=== PATIENT | female | born 1975 | race Caucasian/White ===

== ENCOUNTER → 2017-10-05 07:00 | Outpatient (CLI) | payer OTHER, SELFPAY ==
--- NOTE | 2017-10-05 07:04 | HPBI_ITS ---
MAMMOGRAPHY - BILATERAL SCREENING REASON FOR EXAM: Female, 42 years old. Routine annual screening examination. PERTINENT HISTORY: Grandmother with breast cancer. TECHNIQUE: Digital bilateral breast jerzy (3D mammographic acquisition) in the CC and MLO projections. 2-D mediolateral oblique (MLO) and craniocaudad (CC) views of both breasts were obtained. CAD: Full Field Digital Mammography with Computer Added Detection was performed. COMPARISON: Comparison is made with prior study dated March 12, 2016. FINDINGS: Breast Composition: The breasts are heterogeneously dense, which may obscure small masses. There are no dominant masses or suspicious calcifications. There is a 4 mm well-defined nodule in the upper lateral portion of the left breast. This most likely represents a small cyst or small lymph node. Correlation with ultrasound is recommended. No other significant abnormalities are identified. There has been no significant change since the prior study. HPBI/SCREENING MAMM (CAD), BILAT IMPRESSION: 4 mm well-defined nodule in the upper lateral portion of the left breast as described. Correlation with ultrasound is recommended. ASSESSMENT CATEGORY: BIRADS Category 0: Incomplete. Need additional imaging evaluation. A letter regarding these results will be sent to the patient by the facility within 30 days. Approximately 10% of breast cancers are not detected by mammography. A normal mammogram should not delay biopsy of a clinically suspicious abnormality. [id number] Electronically Signed: Rafael Warner MD at 9:04 EDT Tel [phone], Service support ,
== END ==
PROVIDERS: Visit Provider Obstetrics & Gynecology
DX: Z12.31 Encounter for screening mammogram for malignant neoplasm of breast (principal)
CPT/HCPCS: 77063; 77067

== ENCOUNTER → 2017-10-06 10:23 | Outpatient (CLI) | payer OTHER, SELFPAY ==
--- NOTE | 2017-10-06 10:25 | US_ITS ---
STUDY: ULTRASOUND BREAST - LEFT REASON FOR EXAM: Female, 42 years old. Abnormal screening mammogram. TECHNIQUE: Axial and longitudinal images of the LEFT breast were performed with a high resolution ultrasound transducer. COMPARISON: Comparison is made with prior mammogram dated October 05, 2017. FINDINGS: LEFT Breast: There is a 5 mm x 6 mm x 5 mm cyst at the 1:00 position approximately 3 cm from nipple. There is a 7 mm x 7 mm x 6 mm cyst at the 2:00 position breast at 4 cm from nipple. There is also evidence of a 6 mm x 4 mm x 3 mm lymph node at the 1:00 position breast at 5 sinus on US/Breast Limited Unilateral IMPRESSION: 2 small cysts and one benign-appearing lymph node are seen in the upper outer quadrant of the left breast. Routine mammographic follow-up is recommended. ASSESSMENT CATEGORY: BIRADS Category 2: Benign. A letter regarding these results will be sent to the patient by the facility within 30 days. Electronically Signed: Rafael Warner MD at 12:44 EDT Tel [phone], Service support ,
== END ==
PROVIDERS: Family Provider Family Medicine; PCP Family Medicine; Visit Provider Obstetrics & Gynecology
DX: N63.21 Unspecified lump in the left breast, upper outer quadrant (principal)
CPT/HCPCS: 76642

== ENCOUNTER → 2019-08-23 09:12 | Outpatient (CLI) | payer OTHER, SELFPAY | PROVIDERS: PCP Family Medicine; Referring Provider Obstetrics & Gynecology; Visit Provider Obstetrics & Gynecology | DX: L91.8 Other hypertrophic disorders of the skin (principal) ==

== ENCOUNTER → 2019-08-23 18:06 | Outpatient (CLI) | payer OTHER, SELFPAY ==
--- NOTE | 2019-08-23 | SKTAG_PTH ---
PATIENT: ASHOK MCALLISTER LOC: [facility] U#:[id number] AGE/SX: 50/F ROOM: RE08/23/[address]: Dr. Leonel Smith MD : 1975 BED: DIS: SPEC #: [id number] RECD: 08/23/19 18:05 STATUS: ROSE MARY DARLENE #: [id number] TRICIA: 08/23/19 00:[address]: Leonel Smith DEPT: SURGICAL PATHOLOGY RECD BY: Freddie Danielson ENTERED: 08/24/19 08:09 SP TYPE: SKIN TAG RONAL DR: Dr. 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 SJ:krish 08/25/19 MICROSCOPIC DESCRIPTION Slides are reviewed. GROSS DESCRIPTION Received in fixative is one container labeled with the patient's name and designated skin tag. The specimen consists of a polypoid piece of herndon-white skin measuring 1.5 x 1 x 0.3 cm. The specimen is inked, bisected and submitted entirely in one cassette. / SJ:rg 08/24/19 TC:5 CPT: 54065
[2019-08-28 21:03] LABS: HPV Reflexed? NOT INDICATED
== END ==
PROVIDERS: PCP Family Medicine; Referring Provider Obstetrics & Gynecology; Visit Provider Obstetrics & Gynecology
DX: Z12.4 Encounter for screening for malignant neoplasm of cervix (principal)
CPT/HCPCS: 88175; 88304; G0145

== ENCOUNTER → 2019-09-01 15:46 | Outpatient (CLI) | payer OTHER, SELFPAY ==
--- NOTE | 2019-09-01 15:49 | BI_ITS ---
MAMMOGRAPHY - BILATERAL SCREENING 3-D TOMOSYNTHESIS REASON FOR EXAM: Female, 44 years old. Routine screening PERTINENT HISTORY: Grandmother with breast cancer.. TECHNIQUE: 2-D mammograms and 3-D Tomosynthesis of the breast (s) were performed. CAD was performed. COMPARISON: 10/05/2017 FINDINGS: The breast composition is heterogeneously dense that can obscure small breast masses. Scattered benign calcifications are seen. No dense spiculated masses or suspicious microcalcifications are identified. No architectural distortion is identified. There is no skin thickening or retraction. Stable 4 mm nodule in the upper outer quadrant of the left breast. There has been no significant change since the prior study. BI/SCREEN MAMM (CAD) W/JOSE ARMANDO BILAT IMPRESSION: No mammographic signs of malignancy. Routine yearly mammograms recommended. ASSESSMENT CATEGORY: BIRADS Category 2: Benign. A letter regarding these results will be sent to the patient by the facility within 30 days. FOLLOW UP RECOMMENDATION: Yearly follow up mammogram recommended. (A) Approximately 10% of breast cancers are not detected by mammography. A normal mammogram should not delay biopsy of a clinically suspicious abnormality. Electronically Signed: Flip Bearden MD at 9:34 EST , Service support ,
== END ==
PROVIDERS: PCP Family Medicine; Referring Provider Obstetrics & Gynecology; Visit Provider Obstetrics & Gynecology
DX: Z12.31 Encounter for screening mammogram for malignant neoplasm of breast (principal)
CPT/HCPCS: 77063; 77067

== ENCOUNTER → 2019-09-14 09:44 | Outpatient (CLI) | payer OTHER, SELFPAY ==
[2019-09-14 13:04] LABS: Vitamin D,25 Hydroxy 18.8 ng/mL (29.95-100.01)
[2019-09-14 13:10] LABS: Anion Gap 6 (5-15); BUN 13 mg/dL (7-18); BUN/Creat Ratio 16.8 RATIO (10-20); Calcium,Total 8.7 mg/dL (8.5-10.1); Chloride 106 mmol/L (98-107); Cholesterol 163 mg/dL (200); Creatinine, Serum 0.77 mg/dL (0.55-1.02); EST Glomerular Filtration Rate 86 mL/min (>60); Est Glom Filt Rate - Afr Amer 104 mL/min (>60); Glucose 87 mg/dL (74-106); High Density Lipoprotein 64 mg/dL; Potassium 4.3 mmol/L (3.5-5.1); Sodium Level 139 mmol/L (136-145); Triglycerides 117 mg/dL; Very Low Density Lipoprotein 23 mg/dL (5-40)
== END ==
PROVIDERS: PCP Family Medicine; Referring Provider Family Medicine; Visit Provider Family Medicine
DX: Z00.00 Encounter for general adult medical examination without abnormal findings (principal)
CPT/HCPCS: 36415; 80048; 80061; 82306

== ENCOUNTER → 2021-03-07 07:56 | Outpatient (CLI) | payer OTHER, SELFPAY ==
--- NOTE | 2021-03-07 08:16 | BI_ITS ---
MAMMOGRAPHY - BILATERAL SCREENING REASON FOR EXAM: Female, 46 years old. Routine annual screening examination. PERTINENT HISTORY: Grandmother with breast cancer. TECHNIQUE: Digital bilateral breast jose armando (3D mammographic acquisition) in the CC and MLO projections. 2-D mediolateral oblique (MLO) and craniocaudad (CC) views of both breasts were obtained. CAD: Full Field Digital Mammography with Computer Added Detection was performed. COMPARISON: Comparison is made with prior examination dated 09/01/2019 and 10/05/2017. FINDINGS: Breast Composition: The breasts are heterogeneously dense, which may obscure small masses. I suspect a 1.2 cm x 0.8 cm well-defined nodule in the upper lateral aspect of the left breast. Correlation with ultrasound is recommended. Stable benign-appearing bilateral axillary lymph nodes. No other significant abnormalities are identified. BI/SCRN MAMM (CAD)W/JOSE ARMANDO BILAT IMPRESSION: Findings suggestive of a 1.2 cm x 0.8 cm well-defined nodule in the upper lateral aspect of the left breast. Correlation with ultrasound is recommended. ASSESSMENT CATEGORY: BIRADS Category 0: Incomplete. Need additional imaging evaluation. A letter regarding these results will be sent to the patient by the facility within 30 days. Approximately 10% of breast cancers are not detected by mammography. A normal mammogram should not delay biopsy of a clinically suspicious abnormality. [id number] Electronically Signed: Rafael Warner MD at 9:16 EDT , Service support ,
== END ==
PROVIDERS: PCP Family Medicine; Referring Provider Obstetrics & Gynecology; Visit Provider Obstetrics & Gynecology
DX: Z12.31 Encounter for screening mammogram for malignant neoplasm of breast (principal); Z80.3 Family history of malignant neoplasm of breast
CPT/HCPCS: 77063; 77067

== ENCOUNTER → 2021-03-12 10:54 | Outpatient (CLI) | payer OTHER, SELFPAY ==
--- NOTE | 2021-03-12 11:00 | US_ITS ---
STUDY: ULTRASOUND BREAST - LEFT REASON FOR EXAM: Female, 46 years old. Abnormal screening mammogram. TECHNIQUE: Axial and longitudinal images of the LEFT breast were performed with a high resolution ultrasound transducer. # OF IMAGES: 10 COMPARISON: Comparison is made with prior mammogram dated 03/07/2021. Prior sonogram of the left breast dated 10/06/2017. FINDINGS: LEFT Breast: The mammographic abnormality corresponds to a 1.2 cm x 1.4 cm x 0.8 cm cyst at the 1 o''clock position of the breast at 3 cm from nipple. US/Breast Limited Unilateral IMPRESSION: The mammographic abnormality corresponds to 1.2 cm x 1.4 cm x 0.8 cm cyst at the 1 o''clock position of the breast at 3 cm from the nipple. ASSESSMENT CATEGORY: BIRADS Category 2: Benign. A letter regarding these results will be sent to the patient by the facility within 30 days. Electronically Signed: Rafael Warner MD at 12:38 EDT , Service support ,
== END ==
PROVIDERS: PCP Family Medicine; Referring Provider Obstetrics & Gynecology; Visit Provider Obstetrics & Gynecology
DX: R92.8 Other abnormal and inconclusive findings on diagnostic imaging of breast (principal)
CPT/HCPCS: 76642

== ENCOUNTER → 2021-03-27 09:18 | Outpatient (CLI) | payer OTHER, SELFPAY ==
[2021-03-27 10:30] LABS: Anion Gap 6 (5-15); BUN 9 mg/dL (7-18); BUN/Creat Ratio 12.9 RATIO (10-20); Calcium,Total 8.4 mg/dL (8.5-10.1); Chloride 108 mmol/L (98-107); Cholesterol 153 mg/dL (200); EST Glomerular Filtration Rate 96 mL/min (>60); Est Glom Filt Rate - Afr Amer 116 mL/min (>60); Glucose 105 mg/dL (74-106); High Density Lipoprotein 61 mg/dL; Sodium Level 140 mmol/L (136-145); Thyroid Stim Hormone (TSH) 0.99 uIU/mL (0.358-3.74); Triglycerides 76 mg/dL; Very Low Density Lipoprotein 15 mg/dL (5-40)
[2021-03-27 10:55] LABS: Vitamin D,25 Hydroxy 33.5 ng/mL
== END ==
PROVIDERS: PCP Family Medicine; Referring Provider Family Medicine; Visit Provider Family Medicine
DX: Z00.00 Encounter for general adult medical examination without abnormal findings (principal); F32.9 Major depressive disorder, single episode, unspecified
CPT/HCPCS: 36415; 80048; 80061; 82306; 84443

== ENCOUNTER → 2022-10-07 | Outpatient (CLI) | payer OTHER, SELFPAY ==
[2022-10-15 12:50] LABS: HPV APTIMA, High Risk Negative (Negative)
== END | disposition home or self-care (01) ==
LOC: LABSPEC 12:49
PROVIDERS: PCP Family Medicine; Visit Provider Obstetrics & Gynecology
DX: Z01.419 Encounter for gynecological examination (general) (routine) without abnormal findings (principal)
CPT/HCPCS: 87624; 88175; G0145

== ENCOUNTER → 2022-10-12 | Outpatient (CLI) | payer OTHER, SELFPAY ==
--- NOTE | 2022-10-12 12:41 | BI_ITS ---
MAMMOGRAPHY - BILATERAL SCREENING REASON FOR EXAM: Female, 47 years old. Routine annual screening examination. PERTINENT HISTORY: Grandmother with breast cancer. TECHNIQUE: Digital bilateral breast jose armando (3D mammographic acquisition) in the CC and MLO projections. 2-D mediolateral oblique (MLO) and craniocaudad (CC) views of both breasts were obtained. CAD: Full Field Digital Mammography with Computer Added Detection was performed. COMPARISON: Comparison is made with prior study dated March 07, 2021 and September 01, 2019. FINDINGS: Breast Composition: The breasts are heterogeneously dense, which may obscure small masses. There are no dominant masses or suspicious calcifications. Stable 1.2 cm well-defined nodule in the upper lateral aspect of the left breast. Prior ultrasound demonstrated this to be a small cyst. Stable benign-appearing bilateral axillary lymph nodes. No other significant abnormalities are identified. There has been no significant change since the prior study. BI/SCRN MAMM (CAD)W/JOSE ARMANDO BILAT IMPRESSION: Stable bilateral screening mammogram. Yearly follow-up mammogram recommended. (A) ASSESSMENT CATEGORY: BIRADS Category 2: Benign. A letter regarding these results will be sent to the patient by the facility within 30 days. Approximately 10% of breast cancers are not detected by mammography. A normal mammogram should not delay biopsy of a clinically suspicious abnormality. [id number] Electronically Signed: Rafael Warner MD at 14:33 EDT ,
== END | disposition home or self-care (01) ==
LOC: OPBI 12:39
PROVIDERS: PCP Family Medicine; Referring Provider Obstetrics & Gynecology; Visit Provider Obstetrics & Gynecology
DX: Z12.31 Encounter for screening mammogram for malignant neoplasm of breast (principal); Z80.3 Family history of malignant neoplasm of breast
CPT/HCPCS: 77063; 77067

== ENCOUNTER → 2023-11-16 | Outpatient (CLI) | payer OTHER, SELFPAY ==
[2023-11-16 16:18] LABS: Absolute Lymphocyte Count 2.24 X10^3/uL (0.83-4.51); Absolute Neutrophil Count 6.6 X10^3/uL (2.0-7.7); Basophil# 0.09 X10^3/uL; Basophil% 0.9 % (0-1); Eosinophil# 0.16 X10^3/uL; Eosinophils% 1.7 % (0-5); Hemoglobin 13.3 g/dL (12.0-15.0); Lymphocyte # 2.24 X10^3/ul (0.83-4.51); Lymphocyte % 23.4 % (19-41); Mean Corp Hgb Conc 32.4 g/dL (32-36); Mean Corpuscular Hgb 34.3 pg (27.0-32.0); Mean Corpuscular Volume 105.7 fL (81-99); Mean Platelet Vol. 10.7 fl (6.2-12.0); Monocyte# 0.48 X10^3/uL; NRBC Flagged by Analyzer 0 % (0-5); Neutrophil # 6.57 X10^3/uL (2.7-7.7); Neutrophil % 68.6 % (47-70); Platelet Count 272 K/mm3 (150-450); RBC Distribution Width CV 11.8 % (11.6-14.6); RBC Distribution Width SD 46.4 fl (35.1-43.9); Red Blood Count 3.88 M/mm3 (4.2-5.4); White Blood Count 9.6 K/mm3 (4.4-11.0)
[2023-11-16 16:34] LABS: ALB/GLOB Ratio 1.1 RATIO (0.9-2.4); AST(SGOT) 15 U/L (15-37); Alanine Aminotransfer ALT/SGPT 33 U/L (13-56); Albumin, Serum 3.9 g/dL (3.2-5.0); Alkaline Phosphatase 110 U/L (45-117); Anion Gap 4 (5-15); BUN 13 mg/dL (7-18); BUN/Creat Ratio 14.8 RATIO (10-20); Calcium,Total 8.9 mg/dL (8.5-10.1); Chloride 107 mmol/L (98-107); Creatinine, Serum 0.88 mg/dL (0.55-1.02); EST Glomerular Filtration Rate 73 mL/min (>60); Est Glom Filt Rate - Afr Amer 88 mL/min (>60); Globulin 3.4 g/dL (2.2-4.2); Glucose 138 mg/dL (74-106); Potassium 4.2 mmol/L (3.5-5.1); Protein, Total 7.3 g/dL (6.4-8.2); Sodium Level 138 mmol/L (136-145)
[2023-11-18 12:09] LABS: QNTFERON TB Mitogen Value > 10.00 IU/mL (.); QNTFERON TB Nil Value 0.01 IU/mL (.); QNTFERON TB1+ Ag Value 0.08 IU/mL (.); QNTFERON TB2+ Ag Value 0.09 IU/mL (.); QNTIFERON TB Positive Criteria Negative (Negative)
== END | disposition home or self-care (01) ==
LOC: MTLAB 12:37
PROVIDERS: PCP Family Medicine; Referring Provider Dermatology Pediatric Dermatology; Visit Provider Dermatology Pediatric Dermatology
DX: L40.0 Psoriasis vulgaris (principal); M25.50 Pain in unspecified joint; Z79.899 Other long term (current) drug therapy
CPT/HCPCS: 36415; 80053; 85025; 86480

== ENCOUNTER → 2024-05-01 | Outpatient (CLI) | payer OTHER, SELFPAY ==
[2024-05-01 11:16] LABS: Vitamin D,25 Hydroxy 31.9 ng/mL
[2024-05-01 12:22] LABS: Cholesterol 176 mg/dL (200); Estradiol 197.8 pg/mL; Follicle Stimulating Hormone 15.3 mIU/mL; Glucose 110 mg/dL (74-106); High Density Lipoprotein 71 mg/dL; Luteinizing Hormone 19.9 mIU/mL; Triglycerides 158 mg/dL; Very Low Density Lipoprotein 32 mg/dL (5-40)
[2024-05-08 12:08] LABS: Testosterone, Free 2.14 ng/dL (0.10-0.85); Testosterone, Total 67 ng/dL (4-50)
== END | disposition home or self-care (01) ==
LOC: WOBLAB 09:32
PROVIDERS: PCP Family Medicine; Referring Provider Obstetrics & Gynecology; Visit Provider Obstetrics & Gynecology
DX: N89.8 Other specified noninflammatory disorders of vagina (principal)
CPT/HCPCS: 36415; 80061; 82306; 82670; 82947; 83001; 83002; 84402; 84403; 84443; 87070; 87205

== ENCOUNTER → 2024-05-03 | Outpatient (CLI) | payer OTHER, SELFPAY ==
--- NOTE | 2024-05-03 13:49 | BI_ITS ---
MAMMOGRAPHY - BILATERAL SCREENING REASON FOR EXAM: Female, 49 years old. Routine annual screening examination. PERTINENT HISTORY: Grandmother with breast cancer. TECHNIQUE: Digital bilateral breast jose armando (3D mammographic acquisition) in the CC and MLO projections. 2-D mediolateral oblique (MLO) and craniocaudad (CC) views of both breasts were obtained. CAD: Full Field Digital Mammography with Computer Added Detection was performed. COMPARISON: Comparison is made with prior examination October 12, 2022 and March 07, 2021. FINDINGS: Breast Composition: The breasts are heterogeneously dense, which may obscure small masses. There are no dominant masses or suspicious calcifications. Stable 1.2 some well-defined nodule in the upper lateral aspect of the left breast. Stable fat-containing bilateral axillary lymph nodes. No other significant abnormalities are identified. There has been no significant change since the prior study. BI/SCRN MAMM (CAD)W/JOSE ARMANDO BILAT IMPRESSION: Stable bilateral screening mammogram. Yearly follow-up mammogram recommended. (A) ASSESSMENT CATEGORY: BIRADS Category 2: Benign. A letter regarding these results will be sent to the patient by the facility within 30 days. Approximately 10% of breast cancers are not detected by mammography. A normal mammogram should not delay biopsy of a clinically suspicious abnormality. [id number] Electronically Signed: Rafael Warner MD at 15:24 EDT ,
== END | disposition home or self-care (01) ==
LOC: OPBI 13:49
PROVIDERS: PCP Family Medicine; Referring Provider Obstetrics & Gynecology; Visit Provider Obstetrics & Gynecology
DX: Z12.31 Encounter for screening mammogram for malignant neoplasm of breast (principal); Z80.3 Family history of malignant neoplasm of breast
CPT/HCPCS: 77063; 77067

== ENCOUNTER → 2024-06-14 | Outpatient (CLI) | payer OTHER, SELFPAY ==
--- NOTE | 2024-06-14 14:44 | VDLE_ITS ---
Reason For Study: LLE PAin RIGHT LEFT FV is compressible, spontaneous, phasic, GSV is normal. competent and demonstrates normal CFV is compressible, spontaneous, phasic, augmentation. competent, and demonstrates normal Procedure augmentation. This is a venous duplex using B-mode, color FV is compressible, spontaneous, phasic, flow and spectral Doppler. competent and demonstrates normal Exam performed in department. augmentation. The exam was diagnostic. POP V is compressible, spontaneous, phasic, A preliminary report was called and/or faxed competent and demonstrates normal to Dr Zuñiga's office. augmentation. T/P Trunk is compressible. PTV is compressible. LT PerV is compressible. Compressible ASV and multiple varicose veins noted in Lt Prox / Mid calf. VL/Venous Duplex US, Unilateral Interpretation Summary Deep veins of the left lower extremity are patent and compressible segmentally. There is no evidence of left lower extremity deep vein thrombosis. The left great saphenous vein laura ears patent and compressible segmentally. Ordering Physician: Ulcies Zuñiga Referring Physician: Ulices Zuñiga Performed By: Federico Fischer, RVDesiree
== END | disposition home or self-care (01) ==
LOC: CVS 14:42
PROVIDERS: PCP Family Medicine; Referring Provider Family Medicine; Visit Provider Family Medicine
DX: M79.605 Pain in left leg (principal)
CPT/HCPCS: 93971

== ENCOUNTER 2024-06-27 07:27 | Day surgery (SDC) | payer OTHER, SELFPAY ==
--- NOTE | 2024-06-27 07:37 | PRE.ANES_ITS ---
ASA Classification* ASA Classification ASA Classification: 2 Assessment & Plan Anesthesia* Anesthesia Assessment Anesthesia Assessment: Discussed sedation and/or anesthesia options, risks, benefits, and alternatives with patient/parents/legal guardian/POA. Questions invited. The patient/parents/legal guardian/POA seems to understand and agrees to proceed with anesthesia plan. Reviewed the physical assessment, medical history, allergy history and patient home medications list prior to surgery/procedure/anesthetic and documented any changes. Performed airway and anesthesia risk assessments. Anesthesia Type Anesthesia Type: MAC Anesthesia Focused Assessment* Airway Assessment Mouth opens: >3 cm Mallampati Score: II Focused Labs Anesthesia Preop lab: CBC WBC 9.6 K/mm3 (4.4-11.0) 11/16/23 12:40 RBC 3.88 M/mm3 (4.2-5.4) L 11/16/23 12:40 Hgb 13.3 g/dL (12.0-15.0) 11/16/23 12:40 Hct 41.0 % (37-47) 11/16/23 12:40 Plt Count 272 K/mm3 (150-450) 11/16/23 12:40 CHEMISTRY Potassium 4.2 mmol/L (3.5-5.1) 11/16/23 12:40 Sodium 138 mmol/L (136-145) 11/16/23 12:40 BUN 13 mg/dL (7-18) 11/16/23 12:40 Creatinine 0.88 mg/dL (0.55-1.02) 11/16/23 12:40 Glucose 110 mg/dL (74-106) H 05/01/24 09:33 TSH 1.580 uIU/mL (0.358-3.740) 05/01/24 09:33 COAG Pre-Assessment Diagnosis/Proposed Procedure Planned Operative Procedure(s): CSCOPE Anesthesia History Anesthesia History - personal property appraiser: Anesthesia History - personal property appraiser Hx Hospitalization No 06/20/24 12:10 Any Problems With Anesthesia No 06/20/24 12:10 Cholinesterase deficiency No 06/20/24 12:10 You/Your Family Experience No 06/20/24 12:10 fever (hyperthermia) with Relationship Recent Exposure to Contagious Disease Does patient have nerve No 06/20/24 12:10 stimulator Patient instructed to have device shut off --Does patient have Pacemaker or ICD? When Was Last Pacemaker Check QUESTION #4 FULL TEXT: You/Your Family Experience fever (hyperthermia) with Anesthesia Last Oral Intake Last Oral intake: Last Oral Intake NPO since Meds taken in AM with sips of water? Meds patient instructed to take am of surgery PONV PONV - personal property appraiser: PONV - personal property appraiser Female Yes 06/20/24 12:10 HX of Motion Sickness No 06/20/24 12:10 HX of N/V After Surgery Yes 06/20/24 12:10 Non-Smoker No 06/20/24 12:10 Duration of Surgery greater No 06/20/24 12:10 than 60 minutes Number of Risk Factors 2 06/20/24 12:10 PONV Score Moderate Risk 06/20/24 12:10 Height & Weight Height & Weight: Anesthesia: Height & Weight Height 5 ft 3 in 06/02/24 10:54 Respiratory Assessment Respiratory Assessment - personal property appraiser: Respiratory Tract Infection Hx - personal property appraiser Hx Respiratory Tract Infection No 06/20/24 12:10 STOP Sleep Apnea STOP Sleep Apnea - personal property appraiser: STOP Sleep Apnea - personal property appraiser Hx Hypertension No 06/20/24 12:10 Hx Sleep Apnea No 06/20/24 12:10 CPAP BIPAP Do you snore loudly (louder No 06/20/24 12:10 than talking or can be heard Do you often feel tired/ No 06/20/24 12:10 fatigued/ sleepy during daytime? Has anyone observed you stop No 06/20/24 12:10 breathing during sleep? STOP Results Negative 06/20/24 12:10 QUESTION #5 FULL TEXT : Do you snore loudly (louder than talking or can be heard through closed doors)? Tobacco Use History Tobacco Use History - personal property appraiser: Tobacco Use History - personal property appraiser Tobacco Use Smoking Status Current some day smoker 06/20/24 12:10 Hx Tobacco Use Yes 06/20/24 12:10 Years Smoking Packs Smoked per Day Smoking Cessation Date was within the last 15 years Hx Smoking Cessation Date Hx Smoking Cessation Counseling Hematologic Medial History Hematologic Hx - personal property appraiser: Hematologic Medical Hx - environmental health technologist Hx of Blood Transfusion No 06/20/24 12:10 Hx of Transfusion in last 3 No 06/20/24 12:10 Months Date of Last Transfusion (if within last 3 months) Ever experience any problems No 06/20/24 12:10 with transfusion(s)? Specify any problems Hx of Preganancy in last 3 N/A 06/20/24 12:10 Months Nurse Filling Out Transfusion NBUCHER 06/20/24 12:10 & Questions: Date: 06/20/24 06/20/24 12:10 Time: 12:11 06/20/24 12:10 Patient unable to answer at this time (ie. confused, unrespo /Reproduction History /Reproductive History - personal property appraiser: /Reproductive Hx- personal property appraiser Hx Now No 06/20/24 12:10 Gestational Age (in weeks): EDC: Hx Hx Para Hx Section SAB No 06/20/24 12:10 [facility] Medical History Wears contact lenses Wears glasses Depression Alcohol use Low iron Heartburn Smoker Contraceptive management Home Medications ?Medication ?Instructions ?Recorded ?Last Taken ?Type levonorgestrel (Mirena) 1 device intrauterine ONCE 05/01/24 Unknown History venlafaxine 37.5 mg 37.5 mg PO QDAY #90 caps 06/02/24 Unknown Rx capsule,extended release 24 hr (Effexor XR) aspirin 81 mg capsule 81 mg PO DAILY 06/20/24 Unknown History Allergy/AdvReac Type Severity Reaction Status Date / Time No Known Allergies Allergy Verified 06/20/24 12:07 Family History Other Breast cancer Surgical History History of wisdom tooth extraction S/P S/P left knee surgery H/O unilateral salpingectomy Social History household members: spouse current occupational status: employed Smoking Status: Current some day smoker tobacco type: cigarettes alcohol intake: current details: occasionally substance use type: does not use caffeine: No what type of physical activity do you participate in: none seatbelt use: always do you feel safe at home: Yes additional social history: - Mark Review of Systems (Anesthesia) ROS Narrative System reviewed and no additional complaints, except as documented.
[2024-06-27 07:45] LABS: Internal QC Validated? YES +Cl - CLEAR BKGD; Pregnancy, Urine Negative Negative
[2024-06-27 07:51] VITALS: BP 130/100; PULSE 76; RESP 16; TEMP 36.6; O2SAT 97; BMI 35.9
--- NOTE | 2024-06-27 08:45 | COLBX_PTH ---
PATIENT: ASHOK MCALLISTER LOC: [facility] U#:[id number] AGE/SX: 49/F ROOM: RE06/27/[address]: Dr. Dick Denton MD : 1975 BED: DIS: 06/27/2024 SPEC #: [id number] RECD: 06/27/24 10:44 STATUS: ROSE MARY REZohra #: [id number] TRICIA: 06/27/24 08:[address]: Dick Denton DEPT: SURGICAL PATHOLOGY RECD BY: Toya Addison ENTERED: 06/27/24 11:13 SP TYPE: COLON BX OTHR DR: Dr. Ulices Zuñiga MD Tissues: Cecum, NOS Procedures: Surgery Specimen Level IV HEADER OPERATION: Colonoscopy with biopsy PRE-OP DIAGNOSIS: Encounter for screening for malignant neoplasm of colon TISSUE SUBMITTED: Cecal polyp biopsy MICROSCOPIC DIAGNOSIS Cecal polyp, biopsy: Tubular adenoma. AM. 06/28/2024 MICROSCOPIC DESCRIPTION Slides are reviewed. GROSS DESCRIPTION Received in fixative is one container labeled with the patient's name and designated Cecal polyp biopsy. The specimen consists of one irregular fragment of light herndon soft tissue that measures 0.5 x 0.3 x 0.1 cm. The specimen is totally submitted in one cassette. 06/27/2024 TC:5 CPT:90456
--- NOTE | 2024-06-27 08:47 | HP.PCM_ITS ---
HPI - General General Date of Admission: 06/27/24 Date of Service: 06/27/24 Chief Complaint: Screening colonoscopy HPI Narrative ASHOK MCALLISTER, is a 49 F who presents for screening colonoscopy. She has had no prior colonoscopy. No family history of colon polyps or colon cancers. She does have a family history of pancreatic cancer [facility] Medical History Wears contact lenses Wears glasses Depression Alcohol use Low iron Heartburn Smoker Contraceptive management Home Medications ?Medication ?Instructions ?Recorded ?Last Taken ?Type levonorgestrel (Mirena) 1 device intrauterine ONCE 05/01/24 Unknown History venlafaxine 37.5 mg 37.5 mg PO QDAY #90 caps 06/02/24 Unknown Rx capsule,extended release 24 hr (Effexor XR) aspirin 81 mg capsule 81 mg PO DAILY 06/20/24 Unknown History Allergy/AdvReac Type Severity Reaction Status Date / Time No Known Allergies Allergy Verified 06/27/24 07:51 Family History Other Breast cancer Surgical History History of wisdom tooth extraction S/P S/P left knee surgery H/O unilateral salpingectomy Social History household members: spouse current occupational status: employed Smoking Status: Current some day smoker tobacco type: cigarettes alcohol intake: current details: occasionally substance use type: does not use caffeine: No what type of physical activity do you participate in: none seatbelt use: always do you feel safe at home: Yes additional social history: - Mark Vital Signs Vital Signs Vital Signs: 06/27/24 07:51 06/27/24 07:51 Temperature 98 F Temperature Source Temporal Pulse Rate 76 Respiratory Rate 16 Respiratory Pattern Normal Blood Pressure 130/100 H Blood Pressure Mean 110 Blood Pressure Source Monitor Blood Pressure Position Semi-Fowlers Blood Pressure Location Right Arm Pulse Ox 97 Oxygen Delivery Method Room Air Weight Weight: 202 lb 13.204 oz Body Mass Index (BMI) 35.9 Physical Exam Narrative Patient is alert and oriented x 3. She is in no acute distress. Head is normocephalic and atraumatic. Pupils are equal round and reactive to light. Abdomen soft nontender nondistended. Results Lab / Micro Data Labs: Laboratory Results - last 24 hr 06/27/24 07:35: Urine Test Negative Assessment & Plan Assessment/Plan (1) Encounter for screening for malignant neoplasm of colon: PLAN: The patient is a 49-year-old female who presents today for an elective screening colonoscopy. We discussed the details of the planned procedure including the risks benefits and alternatives. She wishes to proceed. Procedure will begin momentarily. Charges/Coding Visit Charges Inpatient E&M: 99021 Init Hosp L1
[2024-06-27 09:25] VITALS: BP 115/90; BP 130/100; PULSE 73; RESP 16; TEMP 36.8; O2SAT 95
[2024-06-27 09:30] VITALS: BP 125/87; BP 130/100; PULSE 67; RESP 16; O2SAT 100
--- NOTE | 2024-06-27 09:30 | PCM.POST.ANE ---
Anesthesia: Postop Eval I Current Vital Signs Temperature: 98.3 F Pulse Rate: 72 Blood Pressure: 115/90 Respiratory Rate: 16 Pulse Ox: 99 Oxygen Delivery Method: Room Air Assessment Airway patent: Yes Spontaneous unlabored respirations: Yes Mental status: Awake and Calm nausea: No Vomiting: No Anesthesia Complication: No Fluid Hydration Crystalloid volume administer (ml): 60 Total IV fluid infused: 60 Progress Note Anesthesia document: Postop Eval 1 completed: Yes
[2024-06-27 09:31] VITALS: BP 115/90; PULSE 72; RESP 16; TEMP 36.8; O2SAT 99
--- NOTE | 2024-06-27 09:31 | OP.CCLET_ITS ---
06/27/2024 Ulices Zuñiga MD [address] [id number] Re : Colonoscopy procedure for Bianca Barboza Dear Dr. Zuñiga This procedure was performed on Thursday, June 27, 2024. My impressions and recommendations are as follows: Impressions : - Hemorrhoids found on perianal exam. - Diverticulosis in the sigmoid colon. - Non-bleeding external and internal hemorrhoids. - One 3 mm polyp in the cecum, removed with a cold biopsy forceps. Resected and retrieved. - The examination was otherwise normal on direct and retroflexion views. Recommendations : - Discharge patient to home (ambulatory). - High fiber diet. - Await pathology results. - Repeat colonoscopy in 5-10 years for surveillance based on pathology results. - Return to my office PRN. - Continue present medications. My findings are described in the full procedure note, which is enclosed. If I can be of further assistance, please feel free to contact me at . Sincerely, Dick Denton MD 06/27/2024 9:30:53 AM This report has been signed electronically.
--- NOTE | 2024-06-27 09:31 | OP.COLON_ITS ---
Patient Name: Bianca Barboza Procedure Date: 06/27/2024 8:34 AM Date of : 1975 Age: 49 Procedure: Colonoscopy Indications: Screening for colorectal malignant neoplasm Providers: Dick Denton MD Referring MD: Ulices Zuñiga MD Medicines: Monitored Anesthesia Care Patient Profile: Refer to note in patient chart for documentation of history and physical. Last Colonoscopy: none. The patient's first colonoscopy is today. Complications: No immediate complications. Estimated blood loss: None. Procedure: Pre-Anesthesia Assessment: - Prior to the procedure, a History and Physical was performed, and patient medications and allergies were reviewed. The patient's tolerance of previous anesthesia was also reviewed. The risks and benefits of the procedure and the sedation options and risks were discussed with the patient. All questions were answered, and informed consent was obtained. Prior Anticoagulants: The patient has taken no anticoagulant or antiplatelet agents. ASA Grade Assessment: II - A patient with mild systemic disease. After reviewing the risks and benefits, the patient was deemed in satisfactory condition to undergo the procedure. After I obtained informed consent, the scope was passed under direct vision. Throughout the procedure, the patient's blood pressure, pulse, and oxygen saturations were monitored continuously. The adult colonoscope was introduced through the anus and advanced to the cecum, identified by appendiceal orifice and ileocecal valve. The ileocecal valve, appendiceal orifice, and rectum were photographed. The entire colon was well visualized. The colonoscopy was performed without difficulty. The patient tolerated the procedure well. The quality of the bowel preparation was adequate. Moderate Sedation: See the other procedure note for documentation of moderate sedation with intraservice time. Scope In: 9:00:09 AM Scope Withdrawal Time 0 hours 12 minutes 5 seconds Scope Out: 9:20:26 AM Total Procedure Duration Time 0 hours 20 minutes 17 seconds Findings: Hemorrhoids were found on perianal exam. A few small-mouthed diverticula were found in the sigmoid colon. Non-bleeding external and internal hemorrhoids were found during retroflexion. The hemorrhoids were medium-sized. A 3 mm polyp was found in the cecum. The polyp was hyperplastic. The polyp was removed with a cold biopsy forceps. Resection and retrieval were complete. Verification of patient identification for the specimen was done by the nurse using the patient's name, date and medical record number. Estimated blood loss was minimal. The exam was otherwise without abnormality on direct and retroflexion views. Impression: - Hemorrhoids found on perianal exam. - Diverticulosis in the sigmoid colon. - Non-bleeding external and internal hemorrhoids. - One 3 mm polyp in the cecum, removed with a cold biopsy forceps. Resected and retrieved. - The examination was otherwise normal on direct and retroflexion views. Recommendation: - Discharge patient to home (ambulatory). - High fiber diet. - Await pathology results. - Repeat colonoscopy in 5-10 years for surveillance based on pathology results. - Return to my office PRN. - Continue present medications. Procedure Code(s): --- Professional --- 11515, Colonoscopy, flexible; with biopsy, single or multiple Diagnosis Code(s): --- Professional --- Z12.11, Encounter for screening for malignant neoplasm of colon K57.30, Diverticulosis of large intestine without perforation or abscess without bleeding K64.8, Other hemorrhoids D12.0, Benign neoplasm of cecum CPT copyright 2021 [employer]. All rights reserved. The codes documented in this report are preliminary and upon used car sales supervisor review may be revised to meet current compliance requirements. Dick Denton MD 06/27/2024 9:30:53 AM This report has been signed electronically. Number of Addenda: 0 Note Initiated On: 06/27/2024 8:34 AM
[2024-06-27 09:35] VITALS: BP 124/102; BP 130/100; PULSE 65; RESP 16; TEMP 36.7; O2SAT 100
[2024-06-27 09:53] VITALS: BP 130/100
--- NOTE | 2024-06-27 15:54 | PCM.POSTANE2 ---
Anesthesia Postop Eval I Sum Postop Eval Completion status Anesthesia document: Postop Eval 1 completed: Yes Anesthesia Postop Eval I Summary Anesthesia Postop Eval I Summary: Anesthesia Postop Eval I: Assessment Summary Airway patent Yes 06/27/24 09:31 [email or web address] Spontaneous unlabored Yes 06/27/24 09:31 [email or web address] respirations Mental status Awake,Calm 06/27/24 09:31 [email or web address] nausea No 06/27/24 09:31 [email or web address] Vomiting No 06/27/24 09:31 [email or web address] Anesthesia Postop Eval I: Fluid Summary Crystalloid volume administer 60 06/27/24 09:31 [email or web address] (ml) Colloids volume administered ( ml) Blood Product volume administered (ml) Total IV fluid infused 60 06/27/24 09:31 [email or web address] Anesthesia Postop Eval I: Summary Notes Anesthesia Complication No 06/27/24 09:31 [email or web address] Anesthesia Complication Comment: Post-operative progress note Anesthesia: Postop Eval II Evaluation Mental status: Awake and Calm Pain Level: 0 nausea: No Vomiting: No Complications Anesthesia Complication: No
== END 2024-06-27 09:54 | disposition home or self-care (01) ==
LOC: EN 07:27 → AC 07:28
PROVIDERS: Anesthesiology; PCP Family Medicine; Referring Provider Family Medicine; Visit Provider Surgery
PROC: 0DJD8ZZ Inspection of Lower Intestinal Tract, Via Natural or Artificial Opening Endoscopic (ICD-10-PCS; CPT 45378; principal; 2024-06-27 08:40)
DX: Z12.11 Encounter for screening for malignant neoplasm of colon (principal); Z80.0 Family history of malignant neoplasm of digestive organs; K57.30 Diverticulosis of large intestine without perforation or abscess without bleeding; F32.A Depression, unspecified; Z79.899 Other long term (current) drug therapy; F17.210 Nicotine dependence, cigarettes, uncomplicated; K64.4 Residual hemorrhoidal skin tags; K64.8 Other hemorrhoids; K63.5 Polyp of colon
CPT/HCPCS: 45380; 81025; 88305; A4216; J2405

== ENCOUNTER → 2025-04-11 | Outpatient (CLI) | payer OTHER, SELFPAY ==
--- NOTE | 2025-04-11 10:49 | RAD_ITS ---
PROCEDURE: ANKLE MIN 3 VIEWS; FOOT MIN 3 VIEWS 04/11/2025 REASON FOR EXAM: ANKLE INJURY; FOOT INJURY TECHNIQUE: Procedure Code: RADANK; RADFO Modality: DX Procedure: ANKLE MIN 3 VIEWS; FOOT MIN 3 VIEWS Laterality: Right COMPARISON: None FINDINGS: Ankle: Bones: No fracture Joints: Normal alignment. Mortise appears intact. No effusion. Soft tissues: Soft tissue swelling. Other: No foreign body. Foot: Bones: No fracture Joints: Normal Soft tissues: Soft tissue swelling. Other: No foreign body. RAD/Ankle min 3 Views IMPRESSION: 1. No ankle fracture. Soft tissue swelling is present. 2. No foot fracture. Reading Location: [id number]
--- NOTE | 2025-04-11 10:49 | RAD_ITS ---
PROCEDURE: ANKLE MIN 3 VIEWS; FOOT MIN 3 VIEWS 04/11/2025 REASON FOR EXAM: ANKLE INJURY; FOOT INJURY TECHNIQUE: Procedure Code: RADANK; RADFO Modality: DX Procedure: ANKLE MIN 3 VIEWS; FOOT MIN 3 VIEWS Laterality: Right COMPARISON: None FINDINGS: Ankle: Bones: No fracture Joints: Normal alignment. Mortise appears intact. No effusion. Soft tissues: Soft tissue swelling. Other: No foreign body. Foot: Bones: No fracture Joints: Normal Soft tissues: Soft tissue swelling. Other: No foreign body. RAD/Foot min 3 Views IMPRESSION: 1. No ankle fracture. Soft tissue swelling is present. 2. No foot fracture. Reading Location: [id number]
== END | disposition home or self-care (01) ==
LOC: MTRAD 10:49
PROVIDERS: PCP Family Medicine; Referring Provider Physician Assistant; Visit Provider Physician Assistant
DX: S99.929A Unspecified injury of unspecified foot, initial encounter (principal); S99.919A Unspecified injury of unspecified ankle, initial encounter
CPT/HCPCS: 73610; 73630

== ENCOUNTER → 2025-05-04 | Outpatient (CLI) | payer OTHER, SELFPAY ==
--- NOTE | 2025-05-04 08:00 | BI_ITS ---
EXAM: SCRN MAMM (CAD)W/JOSE ARMANDO BILAT DATE: 05/04/2025 CLINICAL HISTORY: F, Age 50 y/o , SCREEN FOR BREAST CANCER TECHNIQUE: Procedure Code: [id number] Modality: MG Procedure: SCRN MAMM (CAD)W/JOSE ARMANDO BILAT COMPARISON: Prior exam(s) dated 05/03/2024, 10/12/2022. FINDINGS: TISSUE DENSITY: There are scattered areas of fibroglandular density. Bilateral Breast Mammographic Findings: No significant masses, calcifications or other abnormalities are identified. BI/SCRN MAMM (CAD)W/JOSE ARMANDO BILAT IMPRESSION: There is no mammographic evidence of malignancy. OVERALL FINAL ASSESSMENT BI-RADS 1: NEGATIVE. RECOMMENDATION: Routine annual follow-up in 1 Year Additional Recommendation none A letter with findings and recommendations will be mailed to the patient. Reading Location: [id number]
== END | disposition home or self-care (01) ==
LOC: OPBI 07:53
PROVIDERS: PCP Family Medicine; Referring Provider Obstetrics & Gynecology; Visit Provider Obstetrics & Gynecology
DX: Z12.31 Encounter for screening mammogram for malignant neoplasm of breast (principal)
CPT/HCPCS: 77063; 77067